=== PATIENT | female | born 2000 | race Caucasian/White ===

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

== ENCOUNTER 2025-08-31 22:10 | Emergency (ER) | payer OTHER ==
[2025-08-31 23:08] LABS: BASOPHILS ABSOLUTE AUTO 0.04 K/uL (0.02-0.10); BASOPHILS PERCENT AUTO 0.5 % (0.0-0.5); EOSINOPHILS ABSOLUTE AUTO 0.08 K/uL (0.04-0.40); EOSINOPHILS PERCENT AUTO 1.0 % (1.0-5.0); LYMPHOCYTES ABSOLUTE AUTO 2.45 K/uL (1.50-4.00); LYMPHOCYTES PERCENT AUTO 31.3 % (20.0-40.0); MEAN PLATELET VOLUME 10.4 fL (6.0-10.0); MONOCYTES ABSOLUTE AUTO 0.61 K/uL (0.20-0.80); MONOCYTES PERCENT AUTO 7.8 % (3.0-10.0); NEUTROPHILS ABSOLUTE AUTO 4.64 K/uL (2.00-7.50); NEUTROPHILS PERCENT AUTO 59.4 % (45.0-70.0); PLATELET COUNT,PLT 250 K/uL (150-500); RED BLOOD CELL COUNT 4.31 M/uL (3.80-5.80); RED CELL DISTRIBUTION WIDTH 12.7 % (11.0-16.0); WHITE BLOOD CELL COUNT,WBC 7.8 K/uL (4.0-11.0)
[2025-08-31 23:34] LABS: BLOOD UREA NITROGEN,BUN 14.0 mg/dL (8-26); CHLORIDE,CL 106.0 mmol/L (98-107); CREATININE 0.85 mg/dL (0.55-1.02); EST CRCL DRUG DOSING (CG) 95.54 mL/min; ESTIMATED GFR 98.0 mL/min (>60); GLUCOSE RANDOM 99.0 mg/dL (74-100); POTASSIUM,K 3.6 mmol/L (3.5-5.1); SODIUM,NA 139.0 mmol/L (136-145)
[2025-08-31 23:48] LABS: CARBON DIOXIDE,CO2 25.8 mmol/L (21.0-32.0); TROPONIN I HIGH SENSITIVITY 4.0 pg/ml (<=60.4)
[2025-09-01 00:06] VITALS: BP 114/79; PULSE 90
== END 2025-08-31 23:55 | disposition home or self-care (01) ==
LOC: LB.ED 22:10
DX: R00.2 Palpitations (principal); Z79.899 Other long term (current) drug therapy; Z87.891 Personal history of nicotine dependence
CPT/HCPCS: 36415; 80048; 83735; 84443; 84484; 85025; 93005; 93010; 93242; 99284; 99285